=== PATIENT | male | born 1995 | race Caucasian/White ===

== ENCOUNTER 2017-05-17 14:19 | Emergency (ER) | payer MEDICAID, OTHER ==
[~2017-05-17 14:19] MED LIST: CEPHALEXIN 500 MG CAP PO SCH
[2017-05-17] MEDS ORDERED: TDAP ADULT 0.5 ML INJ (BOOSTRIX) IM ONE (14:26)
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
[2017-05-17 14:29] VITALS: RESP 14; TEMP 98.1
[2017-05-17] MEDS ORDERED: IBUPROFEN 600 MG TAB PO ONE (15:24)
[2017-05-17 15:54] VITALS: BP 120/70; PULSE 82; O2SAT 97
== END 2017-05-17 16:17 | disposition home or self-care (01) ==
LOC: EDUNIT#
DX: S81.832A Puncture wound without foreign body, left lower leg, initial encounter (principal); S80.12XA Contusion of left lower leg, initial encounter; V18.4XXA Pedal cycle driver injured in noncollision transport accident in traffic accident, initial encounter; Y92.89 Other specified places as the place of occurrence of the external cause; Y99.8 Other external cause status; Y93.55 Activity, bike riding; Z23 Encounter for immunization

== ENCOUNTER 2018-02-28 14:45 | Emergency (ER) | payer MEDICAID ==
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
[2018-02-28 15:00] VITALS: BP 117/96
== END 2018-02-28 15:03 | disposition home or self-care (01) ==
LOC: EDUNIT#
DX: S00.81XA Abrasion of other part of head, initial encounter (principal); S80.212A Abrasion, left knee, initial encounter; X58.XXXA Exposure to other specified factors, initial encounter